=== PATIENT | male | born 1975 | race Caucasian/White ===

== ENCOUNTER 2016-07-06 13:31 | Emergency (ER) | payer OTHER ==
[2016-07-06] MEDS ORDERED: HYDROmorphone 1 MG/ML Syringe IVPUSH ONE (14:05)
[2016-07-06] MEDS ORDERED: Sodium Chloride 0.9% 10 ML Syringe FLUSH PRN (14:05)
[2016-07-06] MEDS ORDERED: Ondansetron 4 MG/2 ML SDV IVPUSH ONE (14:05)
[2016-07-06] MEDS ORDERED: Sodium Chloride 0.9% 1,000 ML IV ONE (14:05)
--- NOTE | 2016-07-06 14:08 | EDM.PDOC ---
ED HPI GI/ABDOMINAL - General Chief Complaint: Genitourinary Problem Stated Complaint: HEAD PAIN/ KIDNEY PAIN Time Seen by Provider: 07/06/16 13:45 Source of Information: Reports: Patient History Limitations: Reports: No limitations - History of Present Illness INITIAL COMMENTS - FREE TEXT/NARRATIVE: Patient is a 40-year-old male with a history of polycystic kidney disease complaining of left CVA tenderness and also migraine headache. Patient states the headache started 2 hours ago to which he took Imitrex one hour prior to admission to the ED with little improvement. Headache is located to the right retro-orbital with photophobia and hyperacusis. He is mildly nauseated with no emesis. Denies any vision loss. Denies any fever/chills, focal neurological deficits, neck, or recent activity/trauma that may have caused this discomfort. In addition patient has pain to his left kidney. History of polycystic kidney disease and notes having multiple cysts to kidneys bilaterally. Discomfort started yesterday described as a stabbing sharp sensation rated a 6/ 10 normally controlled with taking Percocet one tab every 6 hours. Patient states he took his last percocet tab yesterday. He has no pain with urination, no hematuria, no abdominal pain, or history kidney stones. States that his urologist instructed him if he continues to have discomfort he should have a repeat ultrasound obtained to evaluate for any changes. Patient denies any additional complaints. Timing/Duration: Reports: Constant Location: flank (Left cva) Quality: Reports: stabbing Severity: moderate Worsens with: Reports: palpation Associated Symptoms: Reports: loss of appetite (Secondary headache), nausea/ vomiting (Mild nausea secondary to headache). Denies: testicular pain, fever/ chills Treatments PATIENT INTAKE COORDINATOR: Reports: Other (see below) (Percocet) - Related Data Allergies/ADRs: Allergies Allergy/AdvReac Type Severity Reaction Status Date / Time No Known Allergies Allergy Verified 07/06/16 13:39 Home Meds: Home Meds Verapamil [Calan SR] 180 mg PO Q8HR 11/01/13 [History] Hydrocodone/Acetaminophen [[place] 5-325] 1 each PO Q6HR PRN #10 tablet 10/14/14 [ Rx] traMADol [Ultram] 50 mg PO ONCALL PRN 10/14/14 [History] Allopurinol [Zyloprim] 300 mg PO DAILY 05/29/15 [History] Lisinopril [Zestril] 40 mg PO DAILY 05/29/15 [History] Naproxen 500 mg PO BID PRN 05/29/15 [History] oxyCODONE HCl/Acetaminophen [Percocet 10-325 mg Tablet] 1 each PO Q6HR PRN #30 tablet 05/29/15 [Rx] oxyCODONE HCl/Acetaminophen [Percocet 10-325 mg Tablet] 1 each PO Q4H #12 tablet 07/04/15 [Rx] prednisoLONE Acetate [Pred Mild] 5 ml OP Q6H #2 drops.susp 10/15/15 [Rx] Past Medical History Cardiovascular History: Reports: Hypertension Other Genitourinary History: Polycystic kidneys - Past Surgical History GI Surgical History: Reports: Appendectomy Musculoskeletal Surgical History: Reports: Arthroscopic knee Social & Family History - Family History Family Medical History: Noncontributory - Tobacco Use Smoking Status *Q: Unknown Ever Smoked Second Hand Smoke Exposure: No - Alcohol Use Days Per Week of Alcohol Use: 1 Number of Drinks Per Day: 1 Total Drinks Per Week: 1 - Recreational Drug Use Recreational Drug Use: No - Living Situation & Occupation Living situation: Reports: Occupation: employed ED ROS GENERAL - Review of Systems Review Of Systems: See Below Constitutional: Reports: decreased appetite. Denies: fever, chills Respiratory: Denies: shortness of breath, cough, sputum Cardiovascular: Denies: Chest pain, Dyspnea on exertion, Lightheadedness GI/Abdominal: Reports: Nausea (Intermittent). Denies: Abdominal pain, Constipation, Diarrhea, Vomiting : Denies: dysuria, frequency, hematuria, urgency, urinary retention Musculoskeletal: Reports: back pain (Left CVA). Denies: neck pain Neurological: Reports: headache, other (Photophobia and hyperacusis). Denies: dizziness, numbness, paresthesia, tingling, trouble speaking, difficulty walking , weakness, change in speech ED EXAM, GI/ABD - Physical Exam Exam: See Below Exam Limited By: No limitations General Appearance: alert, WD/WN, moderate distress Eyes: bilateral: normal appearance, EOMI Ears: normal external exam, normal canal, hearing grossly normal, normal TMs Nose: normal inspection Throat/Mouth: Normal inspection, Normal oropharynx, Normal voice, No airway compromise Head: atraumatic, normocephalic Neck: normal inspection, supple, non-tender, full range of motion. No: lymphadenopathy (L), lymphadenopathy (R), tender lateral, tender midline Respiratory/Chest: no respiratory distress, lungs clear, normal breath sounds, no accessory muscle use, chest non-tender Cardiovascular: normal peripheral pulses, regular rate, rhythm GI/Abdominal: normal bowel sounds, soft, non tender, no organomegaly, no distention, other (Left CVA tenderness.) Back Exam: CVA tenderness (L). No: CVA tenderness (R) Neurological: alert, oriented, CN II-XII intact, normal cognition, no motor/ sensory deficits Psychiatric: normal affect, normal mood Skin Exam: Warm, Dry, Intact, Normal color, No rash Course - Vital Signs Last Recorded V/S: Last Vital Signs Temp 96.0 F 07/06/16 13:39 Pulse 85 07/06/16 13:39 Resp 18 07/06/16 13:39 BP 141/87 H 07/06/16 13:39 Pulse Ox 94 L 07/06/16 13:39 - Orders/Labs/Meds Orders: Active Orders 24 hr Category Date Time Status Peripheral IV Care [RC] . DIRECTED Care 07/06/16 14:05 Active Sodium Chloride 0.9% [Saline Flush] Med 07/06/16 14:05 Active 10 ml FLUSH ASDIRECTED PRN Peripheral IV Insertion Adult [OM.PC] Stat Oth 07/06/16 14:04 Ordered Medication Orders Sodium Chloride (Saline Flush) 10 ml FLUSH ASDIRECTED PRN PRN Reason: Keep Vein Open Last Admin: 07/06/16 14:24 Dose: 10 ml Labs: Laboratory Tests 07/06/16 07/06/16 07/06/16 Range/Units 14:15 14:15 16:05 WBC 6.72 (4.23-9.07) K/mm3 RBC 4.86 (4.63-6.08) M/mm3 Hgb 14.7 (13.7-17.5) gm/L Hct 43.1 (40.1-51.0) % MCV 88.7 (79.0-92.2) fl MCH 30.2 (25.7-32.2) pg MCHC 34.1 (32.2-35.5) g/dl RDW Std Deviation 41.7 (35.1-43.9) fL Plt Count 223 (163-337) K/mm3 MPV 10.4 (9.4-12.3) fl Neut % (Auto) 72.1 H (34.0-67.9) % Lymph % (Auto) 20.4 L (21.8-53.1) % [place] % (Auto) 5.7 (5.3-12.2) % Eos % (Auto) 1.5 (0.8-7.0) Baso % (Auto) 0.3 (0.1-1.2) % Neut # 4.85 (1.78-5.38) K/mm3 Lymph # 1.37 (1.32-3.57) K/mm3 [place] # 0.38 (0.30-0.82) K/mm3 Eos # 0.10 (0.04-0.54) K/mm3 Baso # 0.02 (0.01-0.08) K/mm3 Sodium 141 (136-145) mEq/L Potassium 3.9 (3.5-5.1) mEq/L Chloride 105 (98-107) mEq/L Carbon Dioxide 27 (21-32) mEq/L Anion Gap 12.9 (5-15) BUN 22 H (7-18) mg/dL Creatinine 1.3 (0.7-1.3) mg/dL Est Cr Clr Drug Dosing 76.43 mL/min Estimated GFR (MDRD) > 60 (>60) mL/min BUN/Creatinine Ratio 16.9 (14-18) Glucose 144 H (74-106) mg/dL Calcium 9.0 (8.5-10.1) mg/dL Total Bilirubin 0.6 (0.2-1.0) mg/dL AST 22 (15-37) U/L ALT 32 (16-63) U/L Alkaline Phosphatase 77 (46-116) U/L C-Reactive Protein 1.7 H* (<1.0) mg/dL Total Protein 7.3 (6.4-8.2) g/dl Albumin 3.9 (3.4-5.0) g/dl Globulin 3.4 gm/dL Albumin/Globulin Ratio 1.2 (1-2) Urine Color Light yellow (Yellow) Urine Appearance Clear (Clear) Urine pH 7.0 (5.0-8.0) Ur Specific [place] 1.020 (1.005-1.030) Urine Protein Negative (Negative) Urine Glucose (UA) Negative (Negative) Urine Ketones Negative (Negative) Urine Occult Blood Negative (Negative) Urine Nitrite Negative (Negative) Urine Bilirubin Negative (Negative) Urine Urobilinogen 0.2 (0.2-1.0) Ur Leukocyte Esterase Negative (Negative) Urine RBC Not seen (0-5) /hpf Urine WBC 0-5 (0-5) /hpf Ur Squamous Epith Cells 0-5 (0-5) /hpf Urine Bacteria Not seen (FEW) /hpf Urine Mucus Not seen (FEW) /hpf Meds: Medications Generic Name Dose Route Start Last Admin Trade Name Freq PRN Reason Stop Dose Admin Sodium Chloride 10 ml 07/06/16 14:05 07/06/16 14:24 Saline Flush FLUSH 10 ml ASDIRECTED PRN Administration Keep Vein Open Discontinued Medications Generic Name Dose Route Start Last Admin Trade Name Freq PRN Reason Stop Dose Admin Hydromorphone HCl 1 mg 07/06/16 14:05 07/06/16 14:23 Dilaudid IVPUSH 07/06/16 14:06 1 mg ONETIME ONE Administration Hydromorphone HCl 0.5 mg 07/06/16 15:32 07/06/16 16:22 Dilaudid IVPUSH 07/06/16 15:33 0.5 mg ONETIME ONE Administration Sodium Chloride 1,000 mls @ 999 mls/hr 07/06/16 14:05 07/06/16 14:19 Normal Saline IV 07/06/16 15:05 999 mls/hr ONETIME ONE Administration Ondansetron HCl 4 mg 07/06/16 14:05 07/06/16 14:19 Zofran IVPUSH 07/06/16 14:06 4 mg ONETIME ONE Administration - Re-Assessments/Exams Free Text/Narrative Re-Assessment/Exam: Order a peripheral IV with normal saline 999 mL per hour, Zofran 4 mg IVP, Dilaudid 1 mg IVP. Initial labs and studies include CBC, chem 14, CRP, UA with Micro. 07/06/16 14:07 07/06/16 15:32 labs reviewed: CBC and chemistry panel essentially normal. CRP is slightly elevated. Reassessment, patients headache and flank pain has drastically improved with the above therpies. Still rates pain a 4/10 at this point. Will order additional 0.5mg dilaudid. UA WNL. 07/06/16 16:46 Reassessment, patient's headache is almost gone. Pain to his left flank has drastically improved. Of note patient does have a history of polycystic kidney disease with recent ultrasound obtained by [place] urologists revealing multiple cysts present. Patient states urology instructed him if he should have continued discomfort to have another ultrasound obtained so that they can evaluate for any changes. Patient has opted to have this performed on an outpatient basis. Will discharge patient home with instructions, outpatient renal ultrasound, and refill for pain medication. Departure - Departure Time of Disposition: 17:01 Disposition: Home, Self-Care 01 Preliminary Cause of *Q: Cardiac arrest Condition: fair Clinical Impression: Flank pain, chronic Headache Qualifiers: Headache type: cluster Headache chronicity pattern: episodic headache Intractability: not intractable Qualified Code(s): G44.019 - Episodic cluster headache, not intractable Instructions: General Headache Without Cause, Flank Pain, [id number] Referrals: Linda Dennison DO [Primary Care Provider] - Forms: ED Department Discharge, Return to Work/School Form Additional Instructions: As discussed will obtain ultrasound on an outpatient basis to evaluate for worsening cyst to the left kidney. They will contact you with appointment time. For discomfort suggest taking ibuprofen 400 mg every 6 hours, Tylenol 650 mg every 6 hours in alternating fashion. Push the fluids. For severe pain take Percocet 5/325 one tab every 6 hours. Refrain from driving this evening while taking the Percocet. Followup with your urologist Dr. Thompson as needed. - My Orders Last 24 Hours: My Active Orders 07/06/16 14:04 Peripheral IV Insertion Adult [OM.PC] Stat 07/06/16 14:05 Peripheral IV Care [RC] . DIRECTED Sodium Chloride 0.9% [Saline Flush] 10 ml FLUSH ASDIRECTED PRN - Assessment/Plan Last 24 Hours: My Active Orders 07/06/16 14:04 Peripheral IV Insertion Adult [OM.PC] Stat 07/06/16 14:05 Peripheral IV Care [RC] . DIRECTED Sodium Chloride 0.9% [Saline Flush] 10 ml FLUSH ASDIRECTED PRN
[2016-07-06] MEDS ORDERED: HYDROmorphone 0.5 MG/0.5 ML Syringe IVPUSH ONE (15:32)
[2016-07-06 17:49] VITALS: BP 129/86
== END 2016-07-06 17:25 | disposition home or self-care (01) ==
LOC: JD.ED 13:31
DX: G44.019 Episodic cluster headache, not intractable (principal); R10.9 Unspecified abdominal pain; I10 Essential (primary) hypertension; Z90.49 Acquired absence of other specified parts of digestive tract; Z79.899 Other long term (current) drug therapy
CPT/HCPCS: 36415; 80053; 81001; 85025; 86140; 96361; 96374; 96375; 99284; J1170; J2405; J7040; J7050

== ENCOUNTER 2016-12-21 10:47 | Emergency (ER) | payer OTHER ==
[2016-12-21] MEDS ORDERED: HYDROmorphone 1 MG/ML Syringe IVPUSH ONE ×2 (11:55→14:12)
[2016-12-21] MEDS ORDERED: Ondansetron 4 MG/2 ML SDV IVPUSH ONE (11:57)
--- NOTE | 2016-12-21 11:59 | EDM.PDOC ---
ED HPI GENERAL MEDICAL PROBLEM - General Chief Complaint: Genitourinary Problem Stated Complaint: KIDNEY PAIN Time Seen by Provider: 12/21/16 11:42 Source of Information: Reports: Patient History Limitations: Reports: No Limitations - History of Present Illness INITIAL COMMENTS - FREE TEXT/NARRATIVE: Patient is a 41-year-old male with a history of polycystic kidney disease who presents to the ED complaining of left-sided flank pain. Patient states pain has been persistent for the past week. He's been taking oxycodone 5-325 as needed for the pain. States the pain is different than previous episodes. Pain is described as a dull, sharp sensation worsened with palpation and movement. States he feels dehydrated. Pain is currently a 7 out of 10. States he spoke with his room inspector nurse this past Thursday. They suggested if symptoms worsen to be evaluated in the ED and have a CT the abdomen and pelvis obtained. Patient denies any nausea/vomiting, fever/chills, dysuria, diarrhea, chest pain , shortness of breath, or any additional complaints. Treatments DIRECTOR OPERATING ROOM: Reports: Other Medication(s) Other Treatments DIRECTOR OPERATING ROOM: oxycodone Left Flank Pain Score (Numeric/FACES): 7 - Related Data Allergies Allergy/AdvReac Type Severity Reaction Status Date / Time No Known Allergies Allergy Verified 07/06/16 13:39 Home Meds: Home Meds Verapamil [Calan SR] 180 mg PO Q8HR 11/01/13 [History] Allopurinol [Zyloprim] 300 mg PO DAILY 05/29/15 [History] Lisinopril [Zestril] 40 mg PO DAILY 05/29/15 [History] Naproxen 500 mg PO BID PRN 05/29/15 [History] oxyCODONE HCl/Acetaminophen [Percocet 10-325 mg Tablet] 1 each PO Q6HR PRN #30 tablet 05/29/15 [Rx] Past Medical History HEENT History: Reports: Impaired Vision Cardiovascular History: Reports: Hypertension Other Genitourinary History: Polycystic kidneys - Past Surgical History GI Surgical History: Reports: Appendectomy Musculoskeletal Surgical History: Reports: Arthroscopic Knee Social & Family History - Family History Family Medical History: Noncontributory - Tobacco Use Smoking Status *Q: Never Smoker Second Hand Smoke Exposure: No - Caffeine Use Caffeine Use: Reports: Coffee, Soda - Alcohol Use Days Per Week of Alcohol Use: 1 Number of Drinks Per Day: 1 Total Drinks Per Week: 1 - Recreational Drug Use Recreational Drug Use: No - Living Situation & Occupation Living situation: Reports: Occupation: Employed ED ROS GENERAL - Review of Systems Review Of Systems: See Below Constitutional: Reports: Fever (h), Malaise, Decreased Appetite Respiratory: Reports: No Symptoms Cardiovascular: Reports: No Symptoms GI/Abdominal: Reports: Abdominal Pain (Left flank), Decreased Appetite, Nausea. Denies: Black Stool, Bloody Stool, Constipation, Diarrhea, Distension, Flatus , Hematemesis, Hematochezia, Melena, Vomiting : Reports: Flank Pain (Left). Denies: Dysuria, Frequency, Hematuria, Urgency Musculoskeletal: Reports: Other (Left flank and left lower back) Neurological: Reports: No Symptoms ED EXAM, GI/ABD - Physical Exam Exam: See Below Exam Limited By: No Limitations General Appearance: Alert, WD/WN, Mild Distress Ears: Hearing Grossly Normal Nose: Normal Inspection Throat/Mouth: Normal Voice, No Airway Compromise, Other (Oral mucosal is dry) Neck: Normal Inspection, Supple Respiratory/Chest: No Respiratory Distress, Lungs Clear, Normal Breath Sounds, Chest Non-Tender Cardiovascular: Normal Peripheral Pulses, Regular Rate, Rhythm GI/Abdominal Exam: Normal Bowel Sounds, Soft, Non-Tender, No Organomegaly, No Distention Back Exam: Other (Pain to the left flank and low back worse with palpation.) Extremities: Normal Inspection, Non-Tender, No Pedal Edema Neurological: Alert, Oriented, CN II-XII Intact, Normal Cognition Psychiatric: Normal Affect, Normal Mood Skin Exam: Warm, Dry, Intact Course - Vital Signs Last Recorded V/S: Last Vital Signs Temp 98.7 F 12/21/16 10:54 Pulse 78 12/21/16 10:54 Resp 16 12/21/16 10:54 BP 150/96 H 12/21/16 10:54 Pulse Ox 99 12/21/16 10:54 - Orders/Labs/Meds Orders: Active Orders 24 hr Category Date Time Status Abdomen Pelvis w Cont [CT] Stat Exams 12/21/16 13:01 Taken Sodium Chloride 0.9% [Normal Saline] 1,000 ml Med 12/21/16 12:00 Active IV ASDIRECTED Sodium Chloride 0.9% [Normal Saline] 100 ml Med 12/21/16 14:15 Active IV ASDIRECTED Sodium Chloride 0.9% [Saline Flush] Med 12/21/16 13:49 Active 10 ml FLUSH ONETIME PRN Medication Orders Sodium Chloride (Normal Saline) 1,000 mls @ 250 mls/hr IV ASDIRECTED KANDACE Last Admin: 12/21/16 12:03 Dose: 250 mls/hr Sodium Chloride (Normal Saline) 100 mls @ 80 mls/hr IV ASDIRECTED KANDACE Last Admin: 12/21/16 14:03 Dose: 80 mls/hr Sodium Chloride (Saline Flush) 10 ml FLUSH ONETIME PRN PRN Reason: IV FLUSH Last Admin: 12/21/16 14:01 Dose: 10 ml Labs: Laboratory Tests 12/21/16 12/21/16 12/21/16 Range/Units 12:36 12:36 14:30 WBC 6.27 (4.23-9.07) K/mm3 RBC 4.82 (4.63-6.08) M/mm3 Hgb 14.7 (13.7-17.5) gm/L Hct 42.8 (40.1-51.0) % MCV 88.8 (79.0-92.2) fl MCH 30.5 (25.7-32.2) pg MCHC 34.3 (32.2-35.5) g/dl RDW Std Deviation 41.8 (35.1-43.9) fL Plt Count 217 (163-337) K/mm3 MPV 9.9 (9.4-12.3) fl Neut % (Auto) 63.6 (34.0-67.9) % Lymph % (Auto) 26.2 (21.8-53.1) % [place] % (Auto) 6.2 (5.3-12.2) % Eos % (Auto) 3.5 (0.8-7.0) Baso % (Auto) 0.3 (0.1-1.2) % Neut # (Auto) 3.99 (1.78-5.38) K/mm3 Lymph # (Auto) 1.64 (1.32-3.57) K/mm3 [place] # (Auto) 0.39 (0.30-0.82) K/mm3 Eos # (Auto) 0.22 (0.04-0.54) K/mm3 Baso # (Auto) 0.02 (0.01-0.08) K/mm3 Sodium 141 (136-145) mEq/L Potassium 4.0 (3.5-5.1) mEq/L Chloride 104 (98-107) mEq/L Carbon Dioxide 27 (21-32) mEq/L Anion Gap 14.0 (5-15) BUN 22 H (7-18) mg/dL Creatinine 1.2 (0.7-1.3) mg/dL Est Cr Clr Drug Dosing 81.96 mL/min Estimated GFR (MDRD) > 60 (>60) mL/min BUN/Creatinine Ratio 18.3 H (14-18) Glucose 96 (74-106) mg/dL Calcium 9.1 (8.5-10.1) mg/dL Total Bilirubin 1.1 H (0.2-1.0) mg/dL AST 18 (15-37) U/L ALT 28 (16-63) U/L Alkaline Phosphatase 78 (46-116) U/L C-Reactive Protein 2.3 H* (<1.0) mg/dL Total Protein 7.5 (6.4-8.2) g/dl Albumin 4.0 (3.4-5.0) g/dl Globulin 3.5 gm/dL Albumin/Globulin Ratio 1.1 (1-2) Urine Color Yellow (Yellow) Urine Appearance Clear (Clear) Urine pH 7.0 (5.0-8.0) Ur Specific [place] 1.015 (1.005-1.030) Urine Protein Negative (Negative) Urine Glucose (UA) Negative (Negative) Urine Ketones Negative (Negative) Urine Occult Blood Negative (Negative) Urine Nitrite Negative (Negative) Urine Bilirubin Negative (Negative) Urine Urobilinogen 0.2 (0.2-1.0) Ur Leukocyte Esterase Negative (Negative) Urine RBC 0-5 (0-5) /hpf Urine WBC 0-5 (0-5) /hpf Ur Epithelial Cells Not seen (0-5) /hpf Urine Bacteria Rare (FEW) /hpf Urine Mucus Not seen (FEW) /hpf Meds: Medications Generic Name Dose Route Start Last Admin Trade Name Freq PRN Reason Stop Dose Admin Sodium Chloride 1,000 mls @ 250 mls/hr 12/21/16 12:00 12/21/16 12:03 Normal Saline IV 250 mls/hr ASDIRECTED KANDACE Administration Sodium Chloride 100 mls @ 80 mls/hr 12/21/16 14:15 12/21/16 14:03 Normal Saline IV 80 mls/hr ASDIRECTED KANDACE Administration Sodium Chloride 10 ml 12/21/16 13:49 12/21/16 14:01 Saline Flush FLUSH 10 ml ONETIME PRN Administration IV FLUSH Discontinued Medications Generic Name Dose Route Start Last Admin Trade Name Santino PRN Reason Stop Dose Admin Hydromorphone HCl 1 mg 12/21/16 11:55 12/21/16 12:08 Dilaudid IVPUSH 12/21/16 11:56 1 mg ONETIME ONE Administration Hydromorphone HCl 1 mg 12/21/16 14:12 12/21/16 14:29 Dilaudid IVPUSH 12/21/16 14:13 1 mg ONETIME ONE Administration Iopamidol 100 ml 12/21/16 13:49 12/21/16 14:01 Isovue-300 (61%) IVPUSH 12/21/16 13:50 100 ml ONETIME ONE Administration Ketorolac Tromethamine 30 mg 12/21/16 14:44 12/21/16 15:09 Toradol IVPUSH 12/21/16 14:45 30 mg ONETIME ONE Administration Ondansetron HCl 4 mg 12/21/16 11:57 12/21/16 12:05 Zofran IVPUSH 12/21/16 11:58 4 mg ONETIME ONE Administration - Re-Assessments/Exams Free Text/Narrative Re-Assessment/Exam: Peripheral IV established with Dilaudid 1 mg IVP, and Zofran 4 mg IVP. Initial labs and studies include CBC, CRP, chem 14, and UA. Patient did speak with his urologist nurse on Thursday. He was instructed if pain persists to return to the ED and have a CT of the abdomen and pelvis obtained. Their concern for infection and also ruptured cyst. 12/21/16 13:03 Labs reviewed: Sodium 141, potassium 4.0, AG 14, creatinine 1.2, CRP 2.3, BUN 22, CBC essentially normal. Ordered CT of the abdomen and pelvis with IV contrast only. 12/21/16 14:13 pain is increasing. Ordered Dilaudid 1 mg IVP. Still awaiting results of CT of the abdomen and pelvis. 12/21/16 14:45 CT of the abdomen and pelvis impression: Findings consistent with polycystic kidney disease and hepatic involvement. No definate acute abnormality seen to account for symptoms. Ordered toradol 30mg IVP. Departure - Departure Time of Disposition: 15:26 Disposition: Home, Self-Care 01 Condition: Good Clinical Impression: Flank pain - Discharge Information Instructions: Pain Medicine Instructions, [id number] Referrals: Linda Dennison DO [Primary Care Provider] - Forms: ED Department Discharge, ED Return to Work/School Form Additional Instructions: Unclear etiology of current complaint. Continue taking oxycodone and naproxen as prescribed. Push the fluids. Apply warm compresses to the affected area. Suggest taking miralax 1 capful daily with plenty of water while taking oxycodone. Followup with Nephrologists this coming week. Return to the E.D. for any new or worsening symptoms. - My Orders Last 24 Hours: My Active Orders 12/21/16 12:00 Sodium Chloride 0.9% [Normal Saline] 1,000 ml IV ASDIRECTED 12/21/16 13:01 Abdomen Pelvis w Cont [CT] Stat 12/21/16 13:49 Sodium Chloride 0.9% [Saline Flush] 10 ml FLUSH ONETIME PRN 12/21/16 14:15 Sodium Chloride 0.9% [Normal Saline] 100 ml IV ASDIRECTED - Assessment/Plan Last 24 Hours: My Active Orders 12/21/16 12:00 Sodium Chloride 0.9% [Normal Saline] 1,000 ml IV ASDIRECTED 12/21/16 13:01 Abdomen Pelvis w Cont [CT] Stat 12/21/16 13:49 Sodium Chloride 0.9% [Saline Flush] 10 ml FLUSH ONETIME PRN 12/21/16 14:15 Sodium Chloride 0.9% [Normal Saline] 100 ml IV ASDIRECTED
[2016-12-21] MEDS ORDERED: Sodium Chloride 0.9% 1,000 ML IV SCH (12:00)
[2016-12-21] MEDS ORDERED: Iopamidol 612 MG/ML 100 ML Bottle IVPUSH ONE (13:49)
[2016-12-21] MEDS ORDERED: Sodium Chloride 0.9% 10 ML Syringe FLUSH PRN (13:49)
[2016-12-21] MEDS ORDERED: Sodium Chloride 0.9% 100 ML IV SCH (14:15)
[2016-12-21] MEDS ORDERED: Ketorolac 30 MG/ML SDV IVPUSH ONE (14:44)
[2016-12-21 16:03] VITALS: BP 128/78
--- NOTE | 2016-12-22 08:00 | CT ---
CT abdomen and pelvis Technique: Multiple axial sections were obtained from above the dome of the diaphragm inferiorly through the pubic symphysis. Intravenous contrast was utilized. No oral contrast has been given. Delayed images were also obtained through the abdomen and pelvis. Comparison: Previous CT stone protocol exam dated 07/04/15 is available. Findings: Small portion of the visualized lung bases show nothing acute. Multiple small low-density lesions are identified within the right and left lobes of the liver which are fairly stable from prior exam which are felt compatible with cysts. Spleen appears within normal limits. Adrenal glands show no nodule. Gallbladder shows no calcified gallstones. Multiple cysts are seen within both kidneys. Largest cyst measures approximately 5.8 cm. These findings are seen on prior exam. Delayed images show contrast excretion into both ureters which show no dilatation. Minimal contrast noted on the delayed images within the bladder. Pancreas appears within normal limits. Aorta shows no aneurysmal dilatation. No retroperitoneal adenopathy is seen. No mesenteric abnormalities are identified. Appendix not definitely visualized. No pelvic mass or adenopathy is seen. No bowel dilatation is seen. No free fluid or inflammatory change is identified. Bone window settings were reviewed which show mild scattered degenerative change within the lumbar and thoracic spine. Impression: 1. Multiple cysts within the liver and within both kidneys compatible with polycystic renal and liver disease. Findings are fairly stable as noted above. 2. Contrast excretion into both distal ureters which show no dilatation. 3. Nothing acute is identified on CT study of the abdomen and pelvis. Diagnostic code #3 I agree with preliminary report issued by [facility] ([facility] preliminary report dictated on 12/21/16, 3:38 PM Central Time)
== END 2016-12-21 15:55 | disposition home or self-care (01) ==
LOC: JD.ED 10:47
DX: R10.9 Unspecified abdominal pain (principal); I10 Essential (primary) hypertension; Z79.899 Other long term (current) drug therapy; Z90.49 Acquired absence of other specified parts of digestive tract
CPT/HCPCS: 36415; 74177; 80053; 81001; 85025; 86140; 96361; 96374; 96375; 99284; J1170; J1885; J2405; J7030; J7040; J7050; Q9967

== ENCOUNTER 2017-04-08 18:51 | Emergency (ER) | payer OTHER ==
[2017-04-08 19:11] VITALS: BP 138/91
[2017-04-08] MEDS ORDERED: Sodium Chloride 0.9% 10 ML Syringe FLUSH PRN (19:28)
[2017-04-08] MEDS ORDERED: Ketorolac 30 MG/ML SDV IVPUSH ONE (19:30)
[2017-04-08] MEDS ORDERED: HYDROmorphone 1 MG/ML Syringe IVPUSH ONE ×2 (19:30→21:20)
[2017-04-08] MEDS ORDERED: Sodium Chloride 0.9% 1,000 ML IV SCH (19:30)
--- NOTE | 2017-04-08 21:26 | EDM.PDOC ---
ED HPI GENERAL MEDICAL PROBLEM - General Chief Complaint: Flank Pain Stated Complaint: LEFT FLANK PAIN Time Seen by Provider: 04/08/17 19:20 Source of Information: Reports: Patient History Limitations: Reports: No Limitations - History of Present Illness INITIAL COMMENTS - FREE TEXT/NARRATIVE: The patient presents with left flank pain. He has a history of polycystic kidneys. 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 He is now seeing a pain specialist because of the chronic pain associated with this disease. This last episode has been going on for a couple days. He has no fever, chills, cough, chest pain, shortness of breath, nausea or vomiting. He denies dysuria and hematuria. Onset: Gradual Duration: Day(s): (2) Location: Reports: Other (Left flank) Quality: Reports: Sharp Severity: Severe Improves with: Reports: None Worsens with: Reports: None Associated Symptoms: Reports: No Other Symptoms left flank Pain Score (Numeric/FACES): 8 - Related Data Allergies Allergy/AdvReac Type Severity Reaction Status Date / Time No Known Allergies Allergy Verified 04/08/17 19:11 Home Meds: Home Meds Verapamil [Calan SR] 180 mg PO Q8HR 11/01/13 [History] Allopurinol [Zyloprim] 300 mg PO DAILY 05/29/15 [History] Lisinopril [Zestril] 40 mg PO DAILY 05/29/15 [History] Naproxen 500 mg PO BID PRN 05/29/15 [History] atorvaSTATin [Lipitor] 20 mg PO BEDTIME 04/08/17 [History] oxyCODONE HCl/Acetaminophen [Percocet 10-325 mg Tablet] 1 each PO Q6HR PRN #30 tablet 04/08/17 [Rx] Past Medical History HEENT History: Reports: Impaired Vision Cardiovascular History: Reports: Hypertension Other Genitourinary History: Polycystic kidneys Musculoskeletal History: Reports: Back Pain, Chronic Endocrine/Metabolic History: Reports: Obesity/BMI 30+ - Past Surgical History GI Surgical History: Reports: Appendectomy Musculoskeletal Surgical History: Reports: Arthroscopic Knee Social & Family History - Family History Family Medical History: Noncontributory - Tobacco Use Smoking Status *Q: Never Smoker Second Hand Smoke Exposure: No - Caffeine Use Caffeine Use: Reports: Coffee - Alcohol Use Days Per Week of Alcohol Use: 1 Number of Drinks Per Day: 1 Total Drinks Per Week: 1 - Recreational Drug Use Recreational Drug Use: No - Living Situation & Occupation Living situation: Reports: Occupation: Employed ED ROS GENERAL - Review of Systems Review Of Systems: See Below Constitutional: Reports: No Symptoms HEENT: Reports: No Symptoms Respiratory: Reports: No Symptoms Cardiovascular: Reports: No Symptoms Endocrine: Reports: No Symptoms GI/Abdominal: Reports: No Symptoms : Reports: No Symptoms Musculoskeletal: Reports: Back Pain (Left flank pain) Skin: Reports: No Symptoms Neurological: Reports: No Symptoms ED EXAM, RENAL/ - Physical Exam Exam: See Below Exam Limited By: No Limitations General Appearance: Alert, No Apparent Distress Ears: Normal External Exam Nose: Normal Inspection Head: Atraumatic, Normocephalic Neck: Normal Inspection Respiratory/Chest: No Respiratory Distress, Lungs Clear, Normal Breath Sounds Cardiovascular: Regular Rate, Rhythm, No Edema, No Murmur GI/Abdominal: Soft, Non-Tender, No Organomegaly, No Mass Back Exam: CVA Tenderness (L) Course - Vital Signs Last Recorded V/S: Last Vital Signs Temp 97.5 F 04/08/17 19:08 Pulse 79 04/08/17 19:08 Resp 18 04/08/17 19:08 BP 138/91 H 04/08/17 19:08 Pulse Ox 97 04/08/17 19:08 - Orders/Labs/Meds Orders: Active Orders 24 hr Category Date Time Status Peripheral IV Care [RC] . DIRECTED Care 04/08/17 19:29 Active HYDROmorphone [Dilaudid] Med 04/08/17 21:20 Once 1 mg IVPUSH ONETIME ONE Sodium Chloride 0.9% [Normal Saline] 1,000 ml Med 04/08/17 19:30 Active IV ASDIRECTED Sodium Chloride 0.9% [Saline Flush] Med 04/08/17 19:28 Active 10 ml FLUSH ASDIRECTED PRN Peripheral IV Insertion Adult [OM.PC] Stat Oth 04/08/17 19:28 Ordered Medication Orders Sodium Chloride (Normal Saline) 1,000 mls @ 125 mls/hr IV ASDIRECTED KANDACE Last Admin: 04/08/17 20:19 Dose: 125 mls/hr Sodium Chloride (Saline Flush) 10 ml FLUSH ASDIRECTED PRN PRN Reason: Keep Vein Open Last Admin: 04/08/17 20:18 Dose: 10 ml Labs: Laboratory Tests 04/08/17 04/08/17 04/08/17 Range/Units 20:07 20:17 20:17 WBC 7.81 (4.23-9.07) K/mm3 RBC 4.59 L (4.63-6.08) M/mm3 Hgb 14.2 (13.7-17.5) gm/L Hct 41.7 (40.1-51.0) % MCV 90.8 (79.0-92.2) fl MCH 30.9 (25.7-32.2) pg MCHC 34.1 (32.2-35.5) g/dl RDW Std Deviation 43.0 (35.1-43.9) fL Plt Count 264 (163-337) K/mm3 MPV 10.5 (9.4-12.3) fl Neut % (Auto) 70.6 H (34.0-67.9) % Lymph % (Auto) 22.3 (21.8-53.1) % Gonzales % (Auto) 5.4 (5.3-12.2) % Eos % (Auto) 1.3 (0.8-7.0) Baso % (Auto) 0.3 (0.1-1.2) % Neut # (Auto) 5.52 H (1.78-5.38) K/mm3 Lymph # (Auto) 1.74 (1.32-3.57) K/mm3 Gonzales # (Auto) 0.42 (0.30-0.82) K/mm3 Eos # (Auto) 0.10 (0.04-0.54) K/mm3 Baso # (Auto) 0.02 (0.01-0.08) K/mm3 Sodium 140 (136-145) mEq/L Potassium 3.5 (3.5-5.1) mEq/L Chloride 104 (98-107) mEq/L Carbon Dioxide 25 (21-32) mEq/L Anion Gap 14.5 (5-15) BUN 24 H (7-18) mg/dL Creatinine 1.3 (0.7-1.3) mg/dL Est Cr Clr Drug Dosing 75.65 mL/min Estimated GFR (MDRD) > 60 (>60) mL/min BUN/Creatinine Ratio 18.5 H (14-18) Glucose 172 H (74-106) mg/dL Calcium 9.4 (8.5-10.1) mg/dL Total Bilirubin 0.5 (0.2-1.0) mg/dL AST 19 (15-37) U/L ALT 34 (16-63) U/L Alkaline Phosphatase 86 (46-116) U/L Total Protein 7.8 (6.4-8.2) g/dl Albumin 3.8 (3.4-5.0) g/dl Globulin 4.0 gm/dL Albumin/Globulin Ratio 1.0 (1-2) Lipase 131 (73-393) U/L Urine Color Yellow (Yellow) Urine Appearance Clear (Clear) Urine pH 5.5 (5.0-8.0) Ur Specific [place] 1.025 (1.005-1.030) Urine Protein Negative (Negative) Urine Glucose (UA) Negative (Negative) Urine Ketones Negative (Negative) Urine Occult Blood Trace-lysed H (Negative) Urine Nitrite Negative (Negative) Urine Bilirubin Negative (Negative) Urine Urobilinogen 0.2 (0.2-1.0) Ur Leukocyte Esterase Negative (Negative) Urine RBC 0-5 (0-5) /hpf Urine WBC 0-5 (0-5) /hpf Ur Epithelial Cells 0-5 (0-5) /hpf Urine Bacteria Rare (FEW) /hpf Urine Mucus Not seen (FEW) /hpf Meds: Medications Generic Name Dose Route Start Last Admin Trade Name Freq PRN Reason Stop Dose Admin Sodium Chloride 1,000 mls @ 125 mls/hr 04/08/17 19:30 04/08/17 20:19 Normal Saline IV 125 mls/hr ASDIRECTED KANDACE Administration Sodium Chloride 10 ml 04/08/17 19:28 04/08/17 20:18 Saline Flush FLUSH 10 ml ASDIRECTED PRN Administration Keep Vein Open Discontinued Medications Generic Name Dose Route Start Last Admin Trade Name Freq PRN Reason Stop Dose Admin Hydromorphone HCl 1 mg 04/08/17 19:30 04/08/17 20:21 Dilaudid IVPUSH 04/08/17 19:31 1 mg ONETIME ONE Administration Ketorolac Tromethamine 30 mg 04/08/17 19:30 04/08/17 20:20 Toradol IVPUSH 04/08/17 19:31 30 mg ONETIME ONE Administration - Re-Assessments/Exams Free Text/Narrative Re-Assessment/Exam: 04/08/17 21:24 I ordered an IV NS at 125mL/hr, labs, and UA. I also ordered some dilaudid and toradol. His CBC and CMP look good. His UA shows no blood or sign of UTI. I reviewed a CT that was done in November and he has several cysts on both kidneys. That is the most I have ever seen. He still have pain so I ordered dilaudid 1mg IV. I will discharge him on some percocet. Departure - Departure Time of Disposition: 21:30 Disposition: Home, Self-Care 01 Condition: Good Clinical Impression: Flank pain, Polycystic kidney disease - Discharge Information Prescriptions: oxyCODONE HCl/Acetaminophen [Percocet 10-325 mg Tablet] 1 each PO Q6HR PRN #30 tablet PRN Reason: Pain Referrals: Linda Dennison DO [Primary Care Provider] - 1 Week Additional Instructions: Take the percocet as needed for pain. Follow up with your doctors as scheduled. Please return if you are worse. - My Orders Last 24 Hours: My Active Orders 04/08/17 19:28 Sodium Chloride 0.9% [Saline Flush] 10 ml FLUSH ASDIRECTED PRN Peripheral IV Insertion Adult [OM.PC] Stat 04/08/17 19:29 Peripheral IV Care [RC] . DIRECTED 04/08/17 19:30 Sodium Chloride 0.9% [Normal Saline] 1,000 ml IV ASDIRECTED 04/08/17 21:20 HYDROmorphone [Dilaudid] 1 mg IVPUSH ONETIME ONE - Assessment/Plan Last 24 Hours: My Active Orders 04/08/17 19:28 Sodium Chloride 0.9% [Saline Flush] 10 ml FLUSH ASDIRECTED PRN Peripheral IV Insertion Adult [OM.PC] Stat 04/08/17 19:29 Peripheral IV Care [RC] . DIRECTED 04/08/17 19:30 Sodium Chloride 0.9% [Normal Saline] 1,000 ml IV ASDIRECTED 04/08/17 21:20 HYDROmorphone [Dilaudid] 1 mg IVPUSH ONETIME ONE
== END 2017-04-08 21:40 | disposition home or self-care (01) ==
LOC: JD.ED 18:51
DX: Q61.3 Polycystic kidney, unspecified (principal); I10 Essential (primary) hypertension; E66.9 Obesity, unspecified; Z79.899 Other long term (current) drug therapy
CPT/HCPCS: 36415; 80053; 81001; 83690; 85025; 96361; 96374; 96375; 96376; 99284; J1170; J1885; J7040; J7050

== ENCOUNTER 2019-05-27 23:19 | Emergency (ER) | payer OTHER ==
[2019-05-28 00:27] VITALS: BP 157/106; PULSE 87
[2019-05-28] MEDS ORDERED: Ondansetron 4 MG Tab.DIS PO ONE (00:29)
--- NOTE | 2019-05-28 01:21 | EDM.PDOC ---
ED HPI GENERAL MEDICAL PROBLEM - General Chief Complaint: Lower Extremity Injury/Pain Stated Complaint: FELL ON ICE AND HIT HEAD AND RIGHT LEG PAIN Time Seen by Provider: 05/28/19 01:18 - History of Present Illness INITIAL COMMENTS - FREE TEXT/NARRATIVE: 43-year-old male presents the emergency room with head pain and right buttocks pain. At 5 AM yesterday morning almost 24 hours ago, the patient slipped on some ice and fell backwards landing on his right hip and buttocks and he struck the back of his head. Several hours after this happened he developed a headache and had some intermittent nausea. The nausea has cleared. He is not having any dizziness. He has a history of polycystic kidney disease and was worried about some related to that. He has been informed to get checked with a history of headaches. He is ambulating but his buttocks is sore he does not have any lateral hip pain. Headache Pain Score (Numeric/FACES): 5 - Related Data Allergies Allergy/AdvReac Type Severity Reaction Status Date / Time No Known Allergies Allergy Verified 11/18/18 08:23 Home Meds: Home Meds Verapamil [Calan SR] 180 mg PO Q8HR 11/01/13 [History] Allopurinol [Zyloprim] 300 mg PO ASDIRECTED 05/29/15 [History] Lisinopril [Zestril] 40 mg PO DAILY 05/29/15 [History] atorvaSTATin [Lipitor] 20 mg PO BEDTIME 04/08/17 [History] Meclizine [Antivert] 25 mg PO DAILY #15 tab 11/18/18 [Rx] Losartan [Cozaar] 100 mg PO DAILY #30 tab 12/09/18 [Rx] Verapamil [Calan] 80 mg PO Q8H #90 tab 12/09/18 [Rx] atorvaSTATin [Lipitor] 20 mg PO BEDTIME #30 tab 12/09/18 [Rx] oxyCODONE HCl/Acetaminophen [Percocet 10-325 mg Tablet] 1 each PO Q6HR PRN #30 tablet 12/09/18 [Rx] Past Medical History HEENT History: Reports: Impaired Vision Other HEENT History: Wears glsses Cardiovascular History: Reports: Hypertension Genitourinary History: Reports: Pyelonephritis Other Genitourinary History: Polycystic kidneys Musculoskeletal History: Reports: Back Pain, Chronic Endocrine/Metabolic History: Reports: Obesity/BMI 30+ - Past Surgical History GI Surgical History: Reports: Appendectomy Musculoskeletal Surgical History: Reports: Arthroscopic Knee Social & Family History - Family History Family Medical History: Noncontributory - Tobacco Use Smoking Status *Q: Never Smoker Second Hand Smoke Exposure: No - Caffeine Use Caffeine Use: Reports: Coffee, Soda - Recreational Drug Use Recreational Drug Use: No - Living Situation & Occupation Living situation: Reports: Occupation: Employed Review of Systems - Review of Systems Review Of Systems: See Below Constitutional: Reports: No Symptoms Eyes: Reports: No Symptoms Ears: Reports: No Symptoms Nose: Reports: No Symptoms Mouth/Throat: Reports: No Symptoms Respiratory: Reports: No Symptoms Cardiovascular: Reports: No Symptoms GI/Abdominal: Reports: Nausea. Denies: Abdominal Pain, Constipation, Vomiting Genitourinary: Reports: No Symptoms Musculoskeletal: Reports: Other Skin: Reports: No Symptoms (Hip and buttocks pain) ED EXAM, GENERAL - Physical Exam Exam: See Below Exam Limited By: No Limitations General Appearance: Alert, No Apparent Distress Eye Exam: Bilateral Eye: EOMI, Normal Inspection, PERRL Ears: Normal External Exam, Normal Canal, Hearing Grossly Normal, Normal TMs Nose: Normal Inspection, Normal Mucosa, No Blood Throat/Mouth: Normal Inspection, Normal Lips, Normal Gums, Normal Oropharynx, Normal Voice, No Airway Compromise. No: Normal Teeth (Poor dentition) Head: Atraumatic, Normocephalic Neck: Normal Inspection, Supple, Non-Tender, Full Range of Motion. No: Lymphadenopathy (L), Lymphadenopathy (R), Tender Lateral, Tender Midline Respiratory/Chest: No Respiratory Distress, Lungs Clear, Normal Breath Sounds Cardiovascular: Regular Rate, Rhythm, No Edema, No Murmur GI/Abdominal: Normal Bowel Sounds, Soft, Non-Tender Back Exam: Normal Inspection. No: CVA Tenderness (L), CVA Tenderness (R) Extremities: Normal Inspection, No Pedal Edema, Other (The patient has good range of motion of his right hip active and passively it is a little tight at the extremes of internal and external rotation. He can ambulate and he has some soft tissue testing tenderness in the posterior buttocks) Skin Exam: Warm, Dry, Intact Course - Vital Signs Last Recorded V/S: Last Vital Signs Temp 36.6 C 05/28/19 00:24 Pulse 87 05/28/19 00:24 Resp 16 05/28/19 00:24 BP 157/106 H 05/28/19 00:24 Pulse Ox 99 05/28/19 00:24 - Orders/Labs/Meds Orders: Active Orders 24 hr Category Date Time Status Head wo Cont [CT] Stat Exams 05/28/19 00:28 Taken Hip Min 2V or 3V w Pelvis Rt [CR] Stat Exams 05/28/19 00:37 Taken Meds: Medications Discontinued Medications Generic Name Dose Route Start Last Admin Trade Name Santino PRN Reason Stop Dose Admin Acetaminophen 650 mg 05/28/19 01:34 Tylenol PO 05/28/19 01:35 NOW ONE Ondansetron HCl 4 mg 05/28/19 00:29 05/28/19 00:38 Zofran Odt PO 05/28/19 00:30 4 mg ONETIME ONE Administration - Re-Assessments/Exams Free Text/Narrative Re-Assessment/Exam: 05/28/19 01:40 I do not see any acute fracture in the pelvis and right hip on x-ray head CT is unremarkable. I did discuss a very remote possibility of missing a fracture on the x-ray however the patient agrees we should hold off on CT if he still symptomatic in a few weeks he can have this rechecked. We will give him 650 mg of Tylenol and discharge him home to rest. Departure - Departure Time of Disposition: 01:41 Disposition: Home, Self-Care 01 Clinical Impression: Head injury, Contusion of right hip and thigh - Discharge Information Referrals: Nilo Gonzalez MD [Primary Care Provider] - Forms: ED Department Discharge Additional Instructions: Return to the emergency room with any questions problems or worsening symptoms. Follow-up with your regular physician early next week if needed. If your hip pain persists repeat x-ray in a couple weeks as we discussed. Tylenol only for pain with your polycystic kidney disease and your borderline kidney function I would not recommend ibuprofen or nonsteroidal anti- inflammatory medications Sepsis Event Note - Evaluation Sepsis Screening Result: No Definite Risk - Focused Exam Vital Signs: Vital Signs Temp Pulse Resp BP Pulse Ox 05/28/19 00:24 36.6 C 87 16 157/106 H 99 Date Exam was Performed: 05/28/19 Time Exam was Performed: 01:36 - My Orders Last 24 Hours: My Active Orders 05/28/19 00:28 Head wo Cont [CT] Stat 05/28/19 00:37 Hip Min 2V or 3V w Pelvis Rt [CR] Stat - Assessment/Plan Last 24 Hours: My Active Orders 05/28/19 00:28 Head wo Cont [CT] Stat 05/28/19 00:37 Hip Min 2V or 3V w Pelvis Rt [CR] Stat
[2019-05-28] MEDS ORDERED: Acetaminophen 325 MG Tab PO ONE (01:34)
--- NOTE | 2019-05-28 11:03 | CR ---
Pelvis and right hip: AP view of the pelvis was obtained as well as AP and frog-leg lateral views of the right hip. Comparison: No prior hip or pelvis exam. Mild joint space narrowing is seen within the right hip. Joint space within the left hip is preserved. Sacroiliac joints are within normal limits. No fracture or other bony abnormality is identified. Impression: 1. Mild joint space narrowing with the right hip. 2. Nothing acute is appreciated on AP pelvis or on two view right hip exam. Diagnostic code #2 This report was dictated in [place] Standard Time
--- NOTE | 2019-05-28 11:03 | CT ---
Head CT Technique: Multiple axial sections through the brain were obtained. Intravenous contrast was not utilized. Comparison: Prior head CT study of 06/27/14. Findings: Ventricles along with basal cisterns and sulci over the convexities appear within normal limits for the patient's age. No abnormal parenchymal densities are seen. No evidence of intracranial hemorrhage. No midline shift or mass-effect is seen. Bone window settings were reviewed. Visualized mastoid sinuses show nothing acute. Probable retention cyst within the right maxillary sinus measuring about 1.4 cm. Mild mucosal thickening within the right mid ethmoid sinus is seen. These paranasal sinuses findings are most likely chronic. Impression: 1. Paranasal sinus findings believed to be chronic. 2. No acute intracranial abnormality is identified. Diagnostic code #2 This report was dictated in [place] Standard Time I agree with preliminary report from [facility], finalized on 05/28/19, 2:10 AM Central Time
== END 2019-05-28 01:48 | disposition home or self-care (01) ==
LOC: JD.ED 23:19
DX: S70.01XA Contusion of right hip, initial encounter (principal); S70.11XA Contusion of right thigh, initial encounter; S09.90XA Unspecified injury of head, initial encounter; I10 Essential (primary) hypertension; E66.9 Obesity, unspecified; Z79.899 Other long term (current) drug therapy; Z90.49 Acquired absence of other specified parts of digestive tract; Z68.35 Body mass index [BMI] 35.0-35.9, adult; W00.0XXA Fall on same level due to ice and snow, initial encounter
CPT/HCPCS: 70450; 73502; 99284; A9270; 99283

== ENCOUNTER 2019-12-27 12:56 | Emergency (ER) | payer OTHER ==
[2019-12-27 13:10] VITALS: BP 139/101; PULSE 86
[2019-12-27] MEDS ORDERED: Sodium Chloride 0.9% 10 ML Syringe FLUSH PRN (14:11)
[2019-12-27] MEDS ORDERED: diphenhydrAMINE 50 MG/ML SDV IVPUSH ONE (14:12)
[2019-12-27] MEDS ORDERED: Ketorolac 30 MG/ML SDV IVPUSH ONE (14:12)
[2019-12-27] MEDS ORDERED: Ondansetron 4 MG/2 ML SDV IVPUSH ONE (14:13)
[2019-12-27] MEDS ORDERED: Sodium Chloride 0.9% 1,000 ML IV SCH (14:15)
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
--- NOTE | 2019-12-27 14:45 | CT ---
Head CT Technique: Multiple axial sections through the brain were obtained. Comparison: Prior head CT study of 12/21/12. Findings: Ventricles along with basal cisterns and sulci over convexities are within normal limits for the patient's age. No abnormal parenchymal densities are seen. No evidence of intracranial hemorrhage. No midline shift or mass-effect is appreciated. Bone window settings were reviewed. No acute calvarial finding is seen. Visualized mastoid sinuses and paranasal sinuses are clear. Impression: 1. Nothing acute is appreciated on noncontrast head CT exam. Diagnostic code #1 This report was dictated in MDT
[2019-12-27] MEDS ORDERED: HYDROmorphone 0.5 MG/0.5 ML Syringe IVPUSH ONE ×2 (16:04→17:08)
[2019-12-27] MEDS ORDERED: Acetaminophen 325 MG Tab PO ONE (17:08)
== END 2019-12-27 18:36 | disposition home or self-care (01) ==
LOC: JD.ED 12:56
DX: G44.019 Episodic cluster headache, not intractable (principal); E78.00 Pure hypercholesterolemia, unspecified; I10 Essential (primary) hypertension; E66.9 Obesity, unspecified; Z79.899 Other long term (current) drug therapy; Z68.22 Body mass index [BMI] 22.0-22.9, adult
CPT/HCPCS: 36415; 70450; 80053; 85025; 96361; 96374; 96375; 96376; 99284; A9270; J1170; J1200; J1885; J2405; J7030; 99283

== ENCOUNTER 2020-01-17 03:52 | Emergency (ER) | payer OTHER ==
[2020-01-17 04:02] VITALS: BP 126/105; PULSE 97
[2020-01-17] MEDS ORDERED: Alum Hydrox/Mag Hydrox/Simeth 30 ML, Lidocaine 2% 15 ML PO STA ×2 (04:28)
[2020-01-17] MEDS ORDERED: Sodium Chloride 0.9% 1,000 ML IV SCH (04:30)
--- NOTE | 2020-01-17 04:34 | EDM.PDOC ---
ED HPI GENERAL MEDICAL PROBLEM - General Chief Complaint: Respiratory Problem Stated Complaint: headache chest pressure poss fever cough Time Seen by Provider: 01/17/20 04:03 Source of Information: Reports: Patient History Limitations: Reports: No Limitations - History of Present Illness INITIAL COMMENTS - FREE TEXT/NARRATIVE: Mr. Alamo is a pleasant 44-year-old gentleman who now presents to the ED stating that he developed a slight nonproductive cough on 01/13/2020, which became more bothersome yesterday, 01/16/2020, followed by a nausea without emesis on 01/14/2020. He then developed a headache that night, felt in his right muslim area, but also a bit behind his right ear. He describes the headache pain as sharp and constant. He has not identified any modifiers, despite alternating acetaminophen and ibuprofen. He states that the headache is different than his usual headache, in that it is not going away with acetaminophen or ibuprofen. He then developed lightheadedness, muscle aches, and feeling diaphoretic on Thursday, 12/2019. He then woke up with crampy epigastric pain around 01:00 this morning. Similarly, he has not identified any modifiers. He denies prior similar epigastric pain. No recent fever, constipation, diarrhea, or urinary symptoms. He acknowledges that he is feeling somewhat anxious. The patient states that he has a history of migraines, however, when asked about that, he acknowledges that he was seen by a Neurologist, but never prescribed anti-migraine medicines. Here in the ED, the patient is found to be hemodynamically stable, afebrile, saturating 100% on room air. Prior to Thursday, the patient denies having a recent fever, chills, sore throat, ear pain, nasal or sinus congestion, cough, dyspnea, chest pain, palpitations, nausea, vomiting, constipation, diarrhea, abdominal pain, urinary symptoms, recent weight gain or weight loss, recent bloody bowel movements or black bowel movements, recent joint aches, headaches, or rashes. Medical records indicate that the patient had a negative CT of the head on 12/27/2019. The patient's PCP is Dr. Nilo Preston. His Urologist is Dr. Michelle Thompson. Headache Pain Score (Numeric/FACES): 8 - Related Data Allergies Allergy/AdvReac Type Severity Reaction Status Date / Time No Known Allergies Allergy Verified 01/17/20 03:59 Home Meds: Home Meds Verapamil [Calan SR] 180 mg PO Q8HR 11/01/13 [History] Allopurinol [Zyloprim] 300 mg PO ASDIRECTED 05/29/15 [History] lisinopriL [Zestril] 40 mg PO DAILY 05/29/15 [History] atorvaSTATin [Lipitor] 20 mg PO BEDTIME 04/08/17 [History] Losartan [Cozaar] 100 mg PO DAILY #30 tab 12/09/18 [Rx] Nortriptyline HCl 1 tab PO DAILY 12/27/19 [History] Past Medical History HEENT History: Reports: Impaired Vision (wears glsses) Cardiovascular History: Reports: High Cholesterol, Hypertension Genitourinary History: Reports: Other (See Below) (Polycystic kidney disease) Musculoskeletal History: Reports: Gout (suspected, not confirmed) Endocrine/Metabolic History: Reports: Obesity/BMI 30+ - Past Surgical History GI Surgical History: Reports: Appendectomy Neurological Surgical History: Reports: Other (See Below) (Bilateral L4-L5 nerve radiofrequency ablation) Musculoskeletal Surgical History: Reports: Arthroscopic Knee (right) Social & Family History - Family History Family Medical History: Noncontributory - Tobacco Use Smoking Status *Q: Never Smoker - Caffeine Use Caffeine Use: Reports: Coffee - Alcohol Use Alcohol Use History: Yes Alcohol Use Frequency: Socially - Recreational Drug Use Recreational Drug Use: No - Living Situation & Occupation Living situation: Reports: , with Family (Daughter) 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 ED EXAM, GENERAL - Physical Exam Exam: See Below Exam Limited By: No Limitations General Appearance: Alert, WD/WN, No Apparent Distress Eye Exam: Bilateral Eye: EOMI, Normal Inspection Ears: Normal External Exam, Hearing Grossly Normal Nose: Normal Inspection Throat/Mouth: Normal Inspection, Normal Lips, Normal Voice, No Airway Compromise Head: Atraumatic, Normocephalic Neck: Normal Inspection, Full Range of Motion Respiratory/Chest: No Respiratory Distress, Lungs Clear, Normal Breath Sounds, No Accessory Muscle Use Cardiovascular: Normal Peripheral Pulses, Regular Rate, Rhythm, No Gallop, No JVD, No Murmur, No Rub Peripheral Pulses: 3+: Radial (L), Radial (R) GI/Abdominal: Normal Bowel Sounds, Soft, Non-Tender (including the epigastrium), No Organomegaly, No Distention, No Abnormal Bruit, No Mass Back Exam: Normal Inspection, Full Range of Motion Extremities: Normal Range of Motion, Normal Capillary Refill, Other (Trace bilateral pretibial edema) Neurological: Alert, Oriented, Normal Cognition, No Motor/Sensory Deficits Psychiatric: Normal Affect Skin Exam: Warm, Dry, Intact, Normal Color, No Rash EKG INTERPRETATION EKG Date: 01/17/20 Time: 04:41 Rhythm: NSR Rate (Beats/Min): 85 [place]: Normal P-Wave: Present QRS: Normal ST-T: Normal QT: Normal Comparison: No Change (11/18/2018) Course - Vital Signs Last Recorded V/S: Last Vital Signs Temp 36.3 C 01/17/20 03:59 Pulse 97 01/17/20 03:59 Resp 17 01/17/20 03:59 BP 126/105 H 01/17/20 03:59 Pulse Ox 100 01/17/20 03:59 Orthostatic Blood Pressure [ 134/99 Supine] Orthostatic Blood Pressure [ 121/94 Standing] - Orders/Labs/Meds Orders: Active Orders 24 hr Category Date Time Status EKG Documentation Completion [RC] STAT Care 01/17/20 04:23 Active Orthostatic Vital Signs [RC] STAT Care 01/17/20 04:23 Active Orthostatic Vital Signs [RC] STAT Care 01/17/20 05:19 Active Orthostatic Vital Signs [RC] STAT Care 01/17/20 06:46 Active Chest 2V [CR] Stat Exams 01/17/20 04:22 Taken Sodium Chloride 0.9% [Normal Saline] 1,000 ml Med 01/17/20 04:30 Active IV ASDIRECTED Medication Orders Sodium Chloride (Normal Saline) 1,000 mls @ 100 mls/hr IV ASDIRECTED KANDACE Last Admin: 01/17/20 04:37 Dose: 100 mls/hr Documented by: EMILIANO Labs: Laboratory Tests 01/17/20 01/17/20 01/17/20 Range/Units 04:30 04:30 04:30 WBC 10.06 H (4.23-9.07) K/mm3 RBC 5.59 (4.63-6.08) M/mm3 Hgb 16.7 (13.7-17.5) gm/dl Hct 50.2 (40.1-51.0) % MCV 89.8 (79.0-92.2) fl MCH 29.9 (25.7-32.2) pg MCHC 33.3 (32.2-35.5) g/dl RDW Std Deviation 44.2 H (35.1-43.9) fL Plt Count 293 (163-337) K/mm3 MPV 10.3 (9.4-12.3) fl Neutrophils % (Manual) 70 H (40-60) % Band Neutrophils % 0 (0-10) % Lymphocytes % (Manual) 22 (20-40) % Atypical Lymphs % 0 % Monocytes % (Manual) 6 (2-10) % Eosinophils % (Manual) 2 (0.8-7.0) % Basophils % (Manual) 0 L (0.2-1.2) Platelet Estimate Adequate RBC Morph Comment Normal D-Dimer, Quantitative < 0.19 L (0.19-0.50) mg/L Sodium 140 (136-145) mEq/L Potassium 4.4 (3.5-5.1) mEq/L Chloride 101 (98-107) mEq/L Carbon Dioxide 29 (21-32) mEq/L Anion Gap 14.4 (5-15) BUN 29 H (7-18) mg/dL Creatinine 1.6 H (0.7-1.3) mg/dL Est Cr Clr Drug Dosing 59.57 mL/min Estimated GFR (MDRD) 47 (>60) mL/min BUN/Creatinine Ratio 18.1 H (14-18) Glucose 123 H (74-106) mg/dL Calcium 9.9 (8.5-10.1) mg/dL Magnesium 1.7 L (1.8-2.4) mg/dl Total Bilirubin 0.9 (0.2-1.0) mg/dL AST 21 (15-37) U/L ALT 44 (16-63) U/L Alkaline Phosphatase 88 (46-116) U/L Troponin I < 0.017 (0.00-0.056) ng/mL Total Protein 8.7 H (6.4-8.2) g/dl Albumin 4.2 (3.4-5.0) g/dl Globulin 4.5 gm/dL Albumin/Globulin Ratio 0.9 L (1-2) SARS-CoV-2 RNA (CARLEY) (NEGATIVE) 01/17/20 Range/Units 04:35 WBC (4.23-9.07) K/mm3 RBC (4.63-6.08) M/mm3 Hgb (13.7-17.5) gm/dl Hct (40.1-51.0) % MCV (79.0-92.2) fl MCH (25.7-32.2) pg MCHC (32.2-35.5) g/dl RDW Std Deviation (35.1-43.9) fL Plt Count (163-337) K/mm3 MPV (9.4-12.3) fl Neutrophils % (Manual) (40-60) % Band Neutrophils % (0-10) % Lymphocytes % (Manual) (20-40) % Atypical Lymphs % % Monocytes % (Manual) (2-10) % Eosinophils % (Manual) (0.8-7.0) % Basophils % (Manual) (0.2-1.2) Platelet Estimate RBC Morph Comment D-Dimer, Quantitative (0.19-0.50) mg/L Sodium (136-145) mEq/L Potassium (3.5-5.1) mEq/L Chloride (98-107) mEq/L Carbon Dioxide (21-32) mEq/L Anion Gap (5-15) BUN (7-18) mg/dL Creatinine (0.7-1.3) mg/dL Est Cr Clr Drug Dosing mL/min Estimated GFR (MDRD) (>60) mL/min BUN/Creatinine Ratio (14-18) Glucose (74-106) mg/dL Calcium (8.5-10.1) mg/dL Magnesium (1.8-2.4) mg/dl Total Bilirubin (0.2-1.0) mg/dL AST (15-37) U/L ALT (16-63) U/L Alkaline Phosphatase (46-116) U/L Troponin I (0.00-0.056) ng/mL Total Protein (6.4-8.2) g/dl Albumin (3.4-5.0) g/dl Globulin gm/dL Albumin/Globulin Ratio (1-2) SARS-CoV-2 RNA (CARLEY) Negative (NEGATIVE) Meds: Medications Generic Name Dose Route Start Last Admin Trade Name Santino PRN Reason Stop Dose Admin Sodium Chloride 1,000 mls @ 100 mls/hr 01/17/20 04:30 01/17/20 04:37 Normal Saline IV 100 mls/hr ASDIRECTED KANDACE Administration Discontinued Medications Generic Name Dose Route Start Last Admin Trade Name Santino PRN Reason Stop Dose Admin Al Hydroxide/Mg Hydroxide 30 0 ml 01/17/20 04:28 01/17/20 04:37 ml/ Lidocaine HCl 15 ml PO 01/17/20 04:29 45 ml ONETIME STA Administration Hydromorphone HCl 0.5 mg 01/17/20 04:39 01/17/20 04:47 Dilaudid IVPUSH 01/17/20 04:40 0.5 mg ONETIME ONE Administration Sodium Chloride 1,000 mls @ 999 mls/hr 01/17/20 05:19 Normal Saline IV 01/17/20 06:19 ONETIME ONE Sodium Chloride 1,000 mls @ 999 mls/hr 01/17/20 06:46 01/17/20 06:50 Normal Saline IV 01/17/20 07:46 999 mls/hr ONETIME ONE Administration Ondansetron HCl 4 mg 01/17/20 04:40 01/17/20 04:47 Zofran IVPUSH 01/17/20 04:41 4 mg ONETIME ONE Administration - Re-Assessments/Exams Free Text/Narrative Re-Assessment/Exam: 01/17/20 04:26 As above, the patient developed a slight nonproductive cough on 01/13/2020, which became more bothersome yesterday, 01/16/2020, followed by a nausea on 01/14/2020, a headache that night, followed by lightheadedness, muscle aches, and feeling diaphoretic on Thursday, 12/2019, then waking with crampy epigastric pain early this morning. Here in the ED, the patient's vital signs are within normal limits, with an oxygen saturation of 100% on room air. His physical exam is grossly unremarkable. I have ordered a work-up that includes orthostatics, blood work, a chest x-ray, an ECG, and a swab for the SARS-CoV-2 virus. In the meantime, the patient will be given a GI cocktail, to see if that does anything to his epigastric pain, IV Dilaudid, IV Zofran, and IV fluid. 01/17/20 05:18 The patient is orthostatic. Two-view chest radiograph appears to be grossly normal. The cardiac silhouette is within normal limits. No pulmonary vascular congestion. No pleural effusions. No focal infiltrate. No pneumothorax. Formal read per the Radiologist pending. The patient's CBC is remarkable for WBC count mildly elevated at 10.06, but with 0% bandemia. The remainder of his CBC is unremarkable. His CMP is remarkable for a BUN/Cr elevated at 29/1.6, and a blood glucose slightly elevated at 123, with the remainder of his CMP being unremarkable. His magnesium level is slightly depressed at 1.7. His troponin is undetectably low. His D-dimer is undetectably low. The patient's test for the SARS-CoV-2 virus is still pending. Review of prior labs finds that the patient's BUN/Cr was 17/1.3 on 12/27/2019. Based on the above, I have ordered a 1 L bolus of IV fluid, to be followed by repeat orthostatics. 01/17/20 05:48 The patient's test for the SARS-CoV-2 virus has returned negative. 01/17/20 06:47 Following 1 L of IV fluid, the patient is still orthostatic. I have ordered a second liter of IV fluid, to be followed by repeat orthostatics. 01/17/20 08:34 Following a second liter of IV fluid, the patient is no longer orthostatic. 01/17/20 08:45 Test results discussed with the patient. He states that he still has a headache, but that his epigastric pain essentially resolved following the GI cocktail. This indicates that his epigastric pain was due to either GERD or gastritis. I have therefore ordered IV famotidine, and will recommend that he continue to take [id number] famotidine on a regular basis. The patient requested a note for work. Departure - Departure Time of Disposition: 08:46 Disposition: Home, Self-Care 01 Condition: Good Clinical Impression: Orthostasis, GERD (gastroesophageal reflux disease), Acute renal insufficiency Headache Qualifiers: Headache type: cluster Headache chronicity pattern: episodic headache Intractability: not intractable Qualified Code(s): G44.019 - Episodic cluster headache, not intractable - Discharge Information *PRESCRIPTION DRUG MONITORING PROGRAM REVIEWED*: Not Applicable *COPY OF PRESCRIPTION DRUG MONITORING REPORT IN PATIENT KRISTI: Not Applicable Referrals: Nilo Gonzalez MD [Primary Care Provider] - Michelle Thompson MD [Ordering Only Provider] - Forms: ED Department Discharge, ED Return to Work/School Form Additional Instructions: You were seen in the emergency room for a dry cough, nausea, headache, lightheadedness, muscle aches, feeling sweaty, and upper midline abdominal pain. Work-up in the ER included positional blood pressure checks, blood work, a chest x-ray, an ECG, and a swab for the SARS-CoV-2 virus. Your blood work found your kidney function to be mildly impaired, likely because of being dehydrated. Your blood pressure dropped excessively between lying and standing, a condition known as orthostasis. You were given 2 L of IV fluid, and your orthostasis resolved. You had improvement in your upper midline abdominal pain following a GI cocktail, indicating that your pain is due to either gastritis or gastroesophageal reflux disease (GERD). You have been started on the antacid famotidine (Pepcid). Famotidine is available [id number], and generic famotidine is just as good as the name brand Pepcid. We recommend that you take 1 tablet of famotidine either once or twice a day, on a regular basis. We recommend that you stay adequately hydrated and get plenty of rest in a dark, quiet place. A note to be off work until tomorrow has been provided to you. If any other problems, please do not hesitate to return to the ER. Sepsis Event Note (ED) - Evaluation Sepsis Screening Result: No Definite Risk - Focused Exam Vital Signs: Vital Signs Temp Pulse Resp BP Pulse Ox 01/17/20 03:59 36.3 C 97 17 126/105 H 100 - My Orders Last 24 Hours: My Active Orders 01/17/20 04:22 Chest 2V [CR] Stat 01/17/20 04:23 EKG Documentation Completion [RC] STAT Orthostatic Vital Signs [RC] STAT 01/17/20 04:30 Sodium Chloride 0.9% [Normal Saline] 1,000 ml IV ASDIRECTED 01/17/20 05:19 Orthostatic Vital Signs [RC] STAT 01/17/20 06:46 Orthostatic Vital Signs [RC] STAT - Assessment/Plan Last 24 Hours: My Active Orders 01/17/20 04:22 Chest 2V [CR] Stat 01/17/20 04:23 EKG Documentation Completion [RC] STAT Orthostatic Vital Signs [RC] STAT 01/17/20 04:30 Sodium Chloride 0.9% [Normal Saline] 1,000 ml IV ASDIRECTED 01/17/20 05:19 Orthostatic Vital Signs [RC] STAT 01/17/20 06:46 Orthostatic Vital Signs [RC] STAT
[2020-01-17] MEDS ORDERED: HYDROmorphone 0.5 MG/0.5 ML Syringe IVPUSH ONE (04:39)
[2020-01-17] MEDS ORDERED: Ondansetron 4 MG/2 ML SDV IVPUSH ONE (04:40)
[2020-01-17] MEDS ORDERED: Sodium Chloride 0.9% 1,000 ML IV ONE ×2 (05:19→06:46)
[2020-01-17] MEDS ORDERED: Famotidine 20 MG/2 ML SDV IVPUSH STA (08:46)
[2020-01-17] MEDS ORDERED: Famotidine 20 MG/2 ML SDV IVPUSH ONE (09:02)
--- NOTE | 2020-01-17 16:51 | CR ---
Chest: 2 views of the chest were obtained. Comparison: Prior chest x-ray of 04/01/18. Heart size and mediastinum are normal. Lungs are clear with no acute parenchymal change. Bony structures appear within normal limits for the patient's age. Impression: 1. Nothing acute is appreciated on 2 view chest x-ray. Diagnostic code #1 Study was dictated in MDT
== END 2020-01-17 09:08 | disposition home or self-care (01) ==
LOC: JD.ED 03:52
DX: G44.019 Episodic cluster headache, not intractable (principal); K21.9 Gastro-esophageal reflux disease without esophagitis; N28.9 Disorder of kidney and ureter, unspecified; E78.00 Pure hypercholesterolemia, unspecified; I11.0 Hypertensive heart disease with heart failure; M10.9 Gout, unspecified; E66.9 Obesity, unspecified; Z68.36 Body mass index [BMI] 36.0-36.9, adult; Z20.828 Contact with and (suspected) exposure to other viral communicable diseases; Z79.899 Other long term (current) drug therapy
CPT/HCPCS: 36415; 71046; 80053; 83735; 84484; 85007; 85027; 85379; 87635; 93005; 96361; 96374; 96375; 99284; A9270; J1170; J2405; J3490; J7030; U0002